=== PATIENT | male | born 1985 | race Caucasian/White ===

== ENCOUNTER 2018-09-15 11:18 | Inpatient (IN) | payer MEDICAID ==
[~2018-09-15] VITALS: Ht 170.2 cm; Wt 104.9 kg
[2018-09-15 11:29] VITALS: Ht 170.2 cm; Wt 104.9 kg
--- NOTE | 2018-09-15 11:46 | NUR ---
PT BROUGHT IN TO ED BY [facility] WITH C/O "FEELING COLD AND SHIVERING" S/P DRINKING A MONSTER WHILE AT WORK. PT REPEORTS NOT DRINKING ENERGY DRINKS. AT BEDSIDE PT IS AAOX4, RESPS E/U, SKIN IS PINK, WARN AND DRY. PERRLA. ALSO, PT IS CALM AND COOPERATIVE. PT AMBULATED FROM LOBBY TO ROOM WITH STEADY GAIT AND NO ASSIST. PT PLACED ON MONITOR. PT ORIENTED TO ROOM, USE OF CALL GOMEZ AND BED IN LOWEST POSITION. BED RAIL IS UP X1 FOR SAFETY.
[2018-09-15 12:07] LABS: PLATELET COUNT 302 x10^3mcL (130-400); RED CELL DISTRIBUTION WIDTH 12.7 % (11.5-14.5)
[2018-09-15 12:28] LABS: BAND NEUTROPHIL 5 % (0-10); BASOPHIL 0 % (0-2); MONOCYTE 6 % (0-7); SEGMENTED NEUTROPHILS 85 % (37-75)
[2018-09-15 12:38] LABS: CALCIUM 8.9 mg/dL (8.5-10.1); CARBON DIOXIDE 25.7 mmol/L (21-32); CHLORIDE SERUM 105 mmol/L (98-107); CREATININE SERUM 2.2 mg/dL (0.7-1.3); GFR1 36 mL/min; GLUCOSE SERUM 297 mg/dL (74-106); POTASSIUM SERUM 4.7 mmol/L (3.5-5.1); SODIUM SERUM 142 mmol/L (136-145)
[2018-09-15 12:50] LABS: ALKALINE PHOSPHATASE 111 U/L (46-116); ALT/SGPT 13 U/L (16-63); AST/SGOT 12 U/L (15-37); BILIRUBIN TOTAL 0.68 mg/dL (0.20-1.00); CHOLESTEROL 162 mg/dL (<200); LIPASE 60 IU/L (73-393); T4(THYROXINE) 6.4 ug/dL (4.7-13.3); TOTAL PROTEIN, SERUM 6.7 g/dL (6.4-8.2)
[2018-09-15 12:54] LABS: ALBUMIN 2.1 g/dL (3.4-5.0); AMYLASE 15 U/L (25-115); HDL CHOLESTEROL 26 mg/dL (40-60)
--- NOTE | 2018-09-15 14:26 | NUR ---
PT RESTING IN POSITION OF COMFORT. NO ACUTE DISTRESS NOTED AT THIS MOMENT.
--- NOTE | 2018-09-15 15:21 | NUR ---
PT AMBULATED FROM RESTROOM TO ROOM WITH STEADY GAIT AND NO ASSIST.
[2018-09-15] MEDS ORDERED: METFORMIN HYDR500 M1 (15:25)
[2018-09-15] MEDS ORDERED: GLIPIZIDE2.5 M1 (15:25)
[2018-09-15 15:38] LABS: MAGNESIUM 1.8 mg/dL (1.8-2.4); PHOSPHOROUS 3.5 mg/dL (2.5-4.9)
--- NOTE | 2018-09-15 15:50 | NUR ---
PT SITTING ON EDGE OF [facility]. 20G IV TO R HAND APPEARS TO HAVE BEEN ACCIDENTALLY DC'D. BANDAGE APPLIED OVER SITE SITE. NS BOLUS INFUSING TO R AC. PT STATES " I DON'T FEEL GOOD. I FEEL LIGHT HEADED. I WANT TO LAY DOWN. " BLOOD GLUCOSE RECHECK =96. PT PLACED BACK ON CM. PT NOW WITH EYES CLOSED. RESPONDS TO QUESTIONS APRORPIATELY. CONTINUE TO MONITOR.
[2018-09-15 16:03] LABS: microscopic required? YES; urine erythrocyte 3+ (NEGATIVE)
[2018-09-15 16:13] LABS: AMPHETAMINE QUAL UR POSITIVE (See below)
--- NOTE | 2018-09-15 16:14 | NUR ---
ESTHER IS EX-GIRLFRIEND WHO YOU COULD CALL IF ANYTHING PT CONFIRMED IT WAS OK.
--- NOTE | 2018-09-15 16:14 | NUR ---
HAND-OFF REPORT TO NADIYA SLAUGHTER FROM TELE UNIT TO ASSUME CARE.
--- NOTE | 2018-09-15 16:27 | NUR ---
PATIENT ARRIVED TO [address] [place] [address] VIA [facility]. PATIENT AMBULATORY, A/OX4. PATIENT EXPERIENCING NAUSEA AND VOMITTING. DR ALANIS IN TO SPEAK WITH PATIENT.
[2018-09-15 16:33] VITALS: BP 116/72
[2018-09-15 16:44] VITALS: BP 116/72
--- NOTE | 2018-09-15 16:47 | NUR ---
RECEIVED PT FROM ED VIA LUL. ORIENTED PT TO ROOM AND SURROUNDINGS. IV NOTED TO PATENT AND INTACT. TELE 12 PLACED ON PT READING STA. INSTRUCTED PT ON THE USE OF CALL LIGHT FOR ASSISTANCE. ENDORSED PT TO PRIMARY NURSE KASANDRA
--- NOTE | 2018-09-15 17:57 | NUR ---
PATIENT HAS ADDITIONAL EPISODE OF VOMITTING. DID NOT BEGIN DINNER TRAY, STATES IT WAS THE CRACKERS HE WAS GIVEN WHEN HE ARRIVED TO FLOOR. NO OTHER COMPLAINTS AT THIS TIME. WILL ENDORSE TO ONCOMING NURSE. CALL LIGHT IN REACH AT THIS TIME.
--- NOTE | 2018-09-15 18:29 | NUR ---
PATIENT IN BED, TOLERATED DINNER TRAY. US TECH IN ROOM FOR VASCULAR SCAN.
[2018-09-15 19:30] VITALS: BP 116/69
--- NOTE | 2018-09-15 19:30 | NUR ---
RECEIVED PT FROM AM NURSE, PT ON BED. AAOX4, TELE #12, BP 116/69 HR 105, DENIES CP/PRESSURE AT THIS TIME. PALPABLE PULSES TO BLE AND BUE, EDEMA TO RIGHT FOOT NOTED, RIGHT LEG RED AND WARM TO TOUCH. BREATHING EVEN AND UNLABORED, O2 98% ON RA. NO SIGNS OF RESP DISTRESS NOTED. ABD SOFT AND ROUND,ACTIVE BOWEL SOUNDS X4 QUAD. VOIDS FREELY BRP, AMBULAROTY, STATES WEAKNESS TO RIGHT LEG. OPEN WOUND TO RIGHT GREAT TOE COVERED WITH DRESSING, DRESSING CDI. IV TO RFA INFUSING WELL. CALL LIGHT WITHING REACH, WILL CONTINUE TO MONITOR.
--- NOTE | 2018-09-16 00:09 | NUR ---
DR. ISRAEL MADE AWARE OF WOUND CULTURE RESULT GRAM + COCCI IN CHAINS.PT ALREADY ON ZOSYN AND VANCO IV ATB.NEW ORDERS AT THIS TIME.
--- NOTE | 2018-09-16 05:12 | NUR ---
PT SLEPT WELL THROUGHOUT NIGHT, BREATHING EVEN AND UNLABORED, NO SIGNS OF RESP DISTRESS NOTED. ALL NEEDS ASSESSED AND ATTENDED, BED AT LOWEST POSITION, CALL LIGHT WITHING REACH. WILL ENDORSE CARE TO AM NURSE.
[2018-09-16 05:49] VITALS: BP 121/75
[2018-09-16 06:40] LABS: CALCIUM 8.2 mg/dL (8.5-10.1); CARBON DIOXIDE 23.9 mmol/L (21-32); CREATININE SERUM 2.6 mg/dL (0.7-1.3); POTASSIUM SERUM 4.7 mmol/L (3.5-5.1)
[2018-09-16 07:04] LABS: PLATELET COUNT 297 x10^3mcL (130-400); RED CELL DISTRIBUTION WIDTH 13.5 % (11.5-14.5)
[2018-09-16 08:00] VITALS: BP 115/72
--- NOTE | 2018-09-16 08:00 | NUR ---
ALERT AND ORIENTED. SITTING UP AT EDGE OF BED GETING READY FOR BREAKFAST. BREATHING FREELY ON RA. HAVING NAUSEA AND VOMITING. ADMIN ZOFRAN 4 MG IV. INDEPENDENT W ADL'S. TELE # 12 ST HR 114. DENIES ANY PAIN. DRESSING TO RT GREAT TOE INTACT. SLIGHT DRAINAGE BEGINNING TO SHOW THROUGH DRESSING. CALL LIGHT WITHIN REACH.
[2018-09-16 11:40] LABS: BAND NEUTROPHIL 48 % (0-10); MONOCYTE 5 % (0-7); PLATELET MORPHOLOGY PLATELETS NORMAL; SEGMENTED NEUTROPHILS 44 % (37-75); rbc morphology (normal/abnorm) NORMAL (NORMAL)
[2018-09-16 13:07] VITALS: BP 118/70
--- NOTE | 2018-09-16 15:19 | NUR ---
AMBULATED PT IN HALLWAY. PT WAS FELING A LITTLE LIGHTHEADED ANS WANTED TO RETURN TO ROOM ALTHOUGH HE SAT UP IN A CHAIR AT BEDSIDE.
[2018-09-16 16:20] VITALS: BP 103/62
--- NOTE | 2018-09-16 18:40 | NUR ---
SEEN BY DR. ALANIS THIS AFTERNOON. CHANGED DRESSING TO RT GREAT TOE AND EXPLAINED SURGERY NEEDED ON SAME TOE. SURGERY WILL BE ON TUESDAY. PT FAMILY WOULD LIKE TO FIND OUT WHETHER OR NOT DR. ALANIS CAN PERFORM THE SURGERY AT [facility] SINCE FAMILY IS CLOSER THERE. NO C/O PAIN. INTERMITTENT NAUSEA. CONTINUES ON ZOSYN,VANCO AND DIFLUCAN IV ABX. INDEPENDENT WITH ADL'S. CALL LIGHT WITHIN REACH.
[2018-09-16 19:53] VITALS: BP 112/74
--- NOTE | 2018-09-16 19:53 | NUR ---
RECEIVED PT FROM AM NURSE. PT SITTING ON BED, WITH FAMILY MEMBERS AT BED SIDE. AAOX4. TELE #12 BP 112/74 HR92. DENIES CP/PRESSURE AT THIS TIME. PALPABLE PULSES TO BUE AND BLE, SWEELING TO RIGH LEG AND RIGHT FOOT. LUNG SOUNDS CTA ON RA, BREATHING EVEN AND UNLABORED, NO SIGNS OF RESP DISTRESS NOTED. VOIDS FREELY BRP. WEAKNESS TO RIGHT LEG, ABLE TO AMBULATE WITH MINIMUM ASSIST. OPEN WOUND TO RIGHT GREAT TOE, COVERED WITH DRESSING, DRESSING CDI. IV TO RFA INFUSING WELL. BED AT LOWEST POSITION, CALL LIGHT WITHING REACH, WILL CONTINUE TO MONITOR.
--- NOTE | 2018-09-17 | NUR ---
PT VERBALIZED HE ONLY URINATED 1 TIME ALL DAY,BLADDER NON-DISTENDED.ASSISTED TO BR WITH FWW AND AMBULATED.URINATED IN THE BR AND VERBALIZED RELIEF.BLADDER SCAN POST VOID.BLADDER FULLY EMPTIED.ENCOURAGED TO CALL AT ALL TIMES FOR ASSISTANCE TO BR.WILL CONTINUE TO MONITOR.
--- NOTE | 2018-09-17 05:10 | NUR ---
PT SLEPT AT INTERVALS THROUGHOUT NIGHT, BREATHING EVEN AND UNLABORED ON RA, NO SIGNS OF RESP DISTRESS NOTED. BED AT LOWEST POSITION, CALL LIGHT WITHING REACH, ALL NEEDS ASSESSED AND ATTENDED. WILL ENDORSE CARE TO AM NURSE.
[2018-09-17 05:55] VITALS: BP 136/87
[2018-09-17 06:53] LABS: CALCIUM 7.5 mg/dL (8.5-10.1); CARBON DIOXIDE 25.5 mmol/L (21-32); MAGNESIUM 1.7 mg/dL (1.8-2.4); PHOSPHOROUS 3.6 mg/dL (2.5-4.9); POTASSIUM SERUM 4.4 mmol/L (3.5-5.1)
[2018-09-17 07:03] LABS: PLATELET COUNT 246 x10^3mcL (130-400); RED CELL DISTRIBUTION WIDTH 13.9 % (11.5-14.5)
[2018-09-17 07:55] VITALS: BP 123/82
--- NOTE | 2018-09-17 08:00 | NUR ---
ALERT AND ORIENTED. DENIES ANY PAIN. GOOD APPETITE WITH BREAKFAST. BREATHING FREELY ON RA. DRESSING TO RT GREAT TOE BECOMING DISLODGED AND WILL BE REPLACED. NOTED 2ND TO RT FOOT PURPLISH IN COLOR. DISCOLORATION TO LOWER LEGS. BREATHING FREELY ON RA, INDEPENDENT W ADL'S. USES WALKER FOR BRP. CALL LIGHT WITHIN REACH.
--- NOTE | 2018-09-17 09:03 | NUR ---
CHANGED GOWN. STARTED MAG RIDER. DRESSING TO RT GREAT TOE BECOMING DISLODGED. REMOVED AND REDRESSED RT GREAT TOE. VERY SMALL AMT YELLOWISH DRAINAGE NOTED ON PREEXSISTING GAUZE. 2ND TOE RT FOOT HAS PURPLISH DISCOLORATION. PT STILL HAS FEELING IN THE TOE.
--- NOTE | 2018-09-17 09:49 | NUR ---
PT AND FAMILY HAVE CHANGED THEIR MIND ABOUT HAVING SURGERY AT [facility]. THEY ARE HAPPY TO TO KEEP THE PT HERE AND HAVE SURGERY HERE. [facility] WAS CLOSER FOR FAMILY.
[2018-09-17 12:40] VITALS: BP 117/82
[2018-09-17 14:48] LABS: BAND NEUTROPHIL 32 % (0-10); SEGMENTED NEUTROPHILS 52 % (37-75)
[2018-09-17 14:49] LABS: MONOCYTE 9 % (0-7); rbc morphology (normal/abnorm) NORMAL (NORMAL)
[2018-09-17 14:50] LABS: PLATELET MORPHOLOGY PLATELETS NORMAL
[2018-09-17 17:01] VITALS: BP 114/77
--- NOTE | 2018-09-17 17:39 | NUR ---
DOZING OFF AND ON. NO C/O PAIN OR NAUSEA THIS SHIFT. SEEN BY DR. ALANIS TODAY. CHANGED DRESSING TO RT GREAT TOE. BRP. VSS. AFEBRILE. WBC 15.6. CONTINUES ON VANCO,DIFLUCAN AND ZOSYN MAG RIDER INFUSED. CALL LIGHT WITHIN REACH.
[2018-09-17 19:30] VITALS: BP 125/85
--- NOTE | 2018-09-17 19:30 | NUR ---
RECEIVED REPORT FROM AM NURSE, PT SITTING ON THE ENDGE OF THE BED, WITH FAMILY MEMEBERS AT BED SIDE. PT AAOX4, ON TELE #12 BP 125/85 HR 111, DENIES CP/PRESSURE. BREATHING EVEN AND UNLABORED ON RA, LUNG SOUNDS CTA. NO SIGNS OF RESP DISTRESS NOTED. PALPABLE PULSES TO BUE AND BLE, EDEMA TO RIGH FOOT AND LEG. ABD SOFT AND NONDISTENDED, ACTIVE BOWEL SOUNDS X4 QUAD, DENIES NAUSEA. VOIDS FREELY BRP. AMBULATORY WITH MINIMUM ASSIST, WEAKNESS TO RIGHT LEG. OPEN WOUND TO RIGHT GREAT TOE, COVERED WITH DRESSING, DRESSIGN CDI. IV TO LEFT HAND INFUSING WELL. SL TO RAC INFUSING WELL. BED AT LOWEST POSITION, CALL LIGHT WITHING REACH, WILL CONTINUE TO MONITOR.
--- NOTE | 2018-09-18 03:03 | NUR ---
PT AWAKE, STATES HAVING A HARD TIME FALLING ASLEEP, AND FEELING HUNGRY, JELLO AND CRAKERS PROVIDED. SITTING ON BED EATING. DENIES CP, BREATHING EVEN AND UNLABORED, NO SIGNS OF RESP DISTRESS NOTED. CALL LIGHT WITHING REACH, WILL CONTINUE TO MONITOR.
--- NOTE | 2018-09-18 05:18 | NUR ---
PT SLEPT AT INTERVALS THROUGHOUT NIGHT, STATED HAVING DIFFICULTY FALLING ASLEEP. BREATHING EVEN AND UNLABORED ON RA, NO SIGNS OF ACUTE DISTRESS NOTED.ALL NEEDS ASSESSED AND ATTENDED. BED AT LOWEST POSITION, CALL LIGHT WITHING REACH, WILL ENDORSE CARE TO AM NURSE.
[2018-09-18 05:34] VITALS: BP 153/93
[2018-09-18 06:59] LABS: BASOPHIL % 0.6 % (0-2); PLATELET COUNT 246 x10^3mcL (130-400); RED CELL DISTRIBUTION WIDTH 13.4 % (11.5-14.5)
[2018-09-18 07:20] LABS: CALCIUM 8.3 mg/dL (8.5-10.1); CARBON DIOXIDE 20.4 mmol/L (21-32); CREATININE SERUM 3.1 mg/dL (0.7-1.3); POTASSIUM SERUM 4.2 mmol/L (3.5-5.1)
--- NOTE | 2018-09-18 07:40 | NUR ---
RECEIVED PATIENT SITTING UP IN BED A/O X4, CLEAR SPEECH, NO NEURO DEFICITS NOTED. TELE # [address], DENIES CHEST PAIN. BREATHING EVEN AND UNLABBORED ON ROOM AIR, DENIES SOB, NO DISTRESS NOTED. DENIES ANY PAIN. IV TO RAC AND LH INTACT AND PATENT. TOURIST HOME KEEPER DR. ALANIS AT BEDSIDE TO SPEAK WITH AND ASSESS PATIENT, INFORMED PATIENT REGARDING PLAN FOR PROCEDURE TOMORROW (RT HALLUX AMPUTATION) CONSENT OBTAINED. DR. ALANIS ALSO PERFORMING DRESSING CHANGE TO RLE, PATIENT TOLERATED WELL. ALL NEEDS ATTENDED TO, SAFETY PRECAUTIONS MAINTAINED. WILL MONITOR.
--- NOTE | 2018-09-18 08:32 | NUR ---
PATIENT SITTING UP AT EDGE OF BED EATING BREAKFAST TOLERATING WELL, NO DISTRESS NOTED. ALL NEEDS ATTENDED TO, SAFETY PRECAUTIONS MAINTAINED WILL MONITOR.
[2018-09-18 09:00] VITALS: BP 132/88
--- NOTE | 2018-09-18 12:05 | NUR ---
PATIENT RESTING IN BED COMFORTABLY WITH EYES CLOSED BREATHING EVEN AND UNLABBORED, NO DISTRESS NOTED. DUE MEDICATION GIVEN TOLERATED WELL. ALL NEEDS ATTENDED TO. SAFETY PRECAUTIONS MAINTAINED. WILL MONITOR.
--- NOTE | 2018-09-18 13:06 | NUR ---
LATE ENTRY AT 1306: RECEIVED TELEPHONE CALL FROM DR. ALANIS STATED PATIENTS PROCEDURE WILL BE TOMORROW 09/19/18 AT 0830, WILL NOTIFY PATIENT. INFORMED DR. ALANIS PATIENT IS ON HEPARIN SQ EVERY 12 HOURS (SEE eMAR), HELD AM DOSE PER ARIK PRIVATE WATCHMAN. PER DR. ALANIS OKAY TO HOLD HEPARIN TODAY PRIOR TO PROCEDURE. WILL CARRY OUT ORDER.
[2018-09-18 13:17] VITALS: BP 145/87
--- NOTE | 2018-09-18 13:25 | NUR ---
PATIENT SITTING UP AT EDGE OF BED UPSET, STATED HE GOT FIRED FROM WORK AND "IS DONE WITH LIFE" AND "I WAS SO CLOSE TO SUICIDAL THOUGHTS BEFORE." ASKED PATIENT IF HE HAD ANY THOUGHTS OF HURTING HIMSELF AND PATIENT STATED "I DO AND I DONT." INFORMED PATIENT RECEIVED A CALL FROM DR. ALANIS AND PROCEDURE IS SCHEDULED FOR TOMORROW AT 0830. PATIENT STATED "I DONT CARE I FEEL LIKE GETTING UP AND WALKING OUT OF HERE." ARIK ILLUMINATOR MADE AWARE OF THE ABOVE AND STATED WILL ORDER PSYCH EVAL AND MOVE PATIENT CLOSER TO NURSING STATION FOR CLOSER MONITORING. CHARGE NURSE MADE AWARE.
--- NOTE | 2018-09-18 13:37 | NUR ---
Attempted to move patient with sitter at bedside but he refused. He said that he was just upset with the fact that he was notified that he lost his job. He denied suicidal ideations. He said that he is not comfortable with somebody at bedside and he likes to be by himself in the room. Attending nurse Aisha made aware. Will continue to monitor patient and maintain safety.
--- NOTE | 2018-09-18 14:45 | NUR ---
PATIENT SITTING UP AT EDGE OF BED EATING LUNCH, NO DISTRESS NOTED, VISITOR AT BEDSIDE. ALL NEEDS ATTENDED TO, SAFETY PRECAUTIONS MAINTAINED. WILL MONITOR.
--- NOTE | 2018-09-18 15:53 | NUR ---
RECEIVED CALL BACK FROM DR. RILEY AND MADE HIM AWARE OF STRESS TEST RESULTS. PER DR. RILEY PATIENT MAY BE DISCHARGED HOME TODAY. WILL FOLLOW UP WITH DISCHARGE ORDERS.
--- NOTE | 2018-09-18 17:50 | NUR ---
PATIENT SITTING UP AT EDGE OF BED EATING DINNER, NO DISTRESS NOTED. DUE MEDICATION GIVEN, TOLERATING WELL, IV TO LH INTACT INFUSING IVF WELL. ALL NEEDS ATTENDED TO, SAFETY PRECAUTIONS MAINTAINED. WILL MONITOR.
[2018-09-18 17:57] VITALS: BP 154/98
--- NOTE | 2018-09-18 18:31 | NUR ---
PATIENT RESTING IN BED COMFORTABLY WITH EYES CLOSED, BREAHTING EVEN AND UNLABBORED, NO DISTRESS NOTED. IV TO LH INTACT INFUSING IVF WELL FREE FROM REDNESS AND INFILTRATION. ALL NEEDS ATTENDED TO DURING SHIFT. SAFETY PRECAUTIONS MAINTAINED. WILL ENDORSE CARE TO ONCOMING NURSE.
--- NOTE | 2018-09-18 19:20 | NUR ---
RECEIVED PT IN BED AWAKE, ALERT,ORIENTED X4. LUNGS CTA. NO SOB ON ROOM AIR. RT FOOT W/ DRESSING CDI. BLE W/ SWELLING W/ RT GREATER THAN LT. RT LEG W/ REDNESS NOTED. HE DENIED HAVING PAIN AT THIS TIME. RLE ELEVATED W/ PILLOWS. W/ IVF NS AT TKO VIA LT HAND. W/ HL TO RTAC INTACT. CALL LIGHT W/IN REACH.
[2018-09-18 20:58] VITALS: BP 147/94
--- NOTE | 2018-09-18 22:00 | NUR ---
PT REQUESTED TO TAKE A SHOWER. WHEN TOLD THAT HE CAN SHOWER PER DOCTOR, PT CHANGED HIS MIND AND SAID HE WILL NOT SHOWER ANYMORE.
[2018-09-19] VITALS (8 sets, daily range): BP systolic 135–173; BP diastolic 84–104
--- NOTE | 2018-09-19 02:00 | NUR ---
PT APPEARS TO BE SLEEPING COMFORTABLY. LEGS ELEVATED ON PILLOWS.
--- NOTE | 2018-09-19 05:03 | NUR ---
PT SLEPT THROUGH THE NIGHT. HE HAD NO C/O PAIN. DRESSING TO RT FOOT CDI. RT LEG ELEVATED ON PILLOWS WHILE HE SLEPT. PT ON NPO STATUS FOR SX THIS AM. PT ABLE TO AMBULATE W/ HEEL WEIGHTBEARING ON RT FOOT. IV SITE TO LT HAND AND RTAC REMAINS INTACT AND PATENT.
--- NOTE | 2018-09-19 06:06 | NUR ---
CHLORHEXIDINE PRE-OP WIPES DONE ORDERED.
[2018-09-19 06:31] LABS: BASOPHIL % 0.3 % (0-2); PLATELET COUNT 268 x10^3mcL (130-400); RED CELL DISTRIBUTION WIDTH 13.2 % (11.5-14.5)
--- NOTE | 2018-09-19 06:40 | NUR ---
REPORT GIVEN TO OR NURSE PATEL
[2018-09-19 06:58] LABS: CARBON DIOXIDE 22.5 mmol/L (21-32); CREATININE SERUM 3.3 mg/dL (0.7-1.3); POTASSIUM SERUM 4.9 mmol/L (3.5-5.1)
--- NOTE | 2018-09-19 07:15 | NUR ---
RECEIVED PATIENT RESTING IN BED COMFORTABLY A/O X4, NO NEURO DEFICITS NOTED. TELE # [address], DENIES CHEST PAIN, BREATHING EVEN UNLABBORED ON RA, NO DISTRESS NOTED. PATIENT SCHEDULED FOR PROCEDURE THIS AM AT 0830, NPO STATUS MAINTAINED. IV TO RAC AND LH H/L INTACT AND PATENT. DENIES ANY PAIN. PATIENT CALM WITH CARE. INSTRUCTED TO CALL FOR ASSISTANCE IF NEEDED. SAFETY PRECAUTIONS MAINTAINED. WILL MONITOR.
--- NOTE | 2018-09-19 07:56 | NUR ---
MADHAV QUINTANA AT BEDSIDE TO SPEAK WITH PATIENT AND HIS BROTHER AT BEDSIDE REGARDING POC. ALL QUESTIONS AND CONCERNS ADDRESSED. SAFETY PRECAUTIONS MAINTAINED. WILL MONITOR.
--- NOTE | 2018-09-19 08:05 | NUR ---
WOUND CARE CONSULT NOT DONE, PODIATRY FOLLOW UP IN HOUSE AND PT. IS PLANNING FOR SURGERY.
--- NOTE | 2018-09-19 08:14 | NUR ---
PATIENT TAKEN DOWN TO OR FOR PROCEDURE. [employer] NURSE MADE AWARE.
--- NOTE | 2018-09-19 10:30 | NUR ---
RECEIVED PATIENT BACK FROM OR/PACU S/P RIGHT HALLUX AMPUTATION. PATIENT SLIGHTLY DROWSY BUT A/O, ABLE TO AMBULATE SELF FROM GURNEY TO BED USING FWW. PATIENT MADE COMFORTABLE IN BED. IV TO LH H/L INTACT AND PATENT. TELE # 12 APPLIED, COMMUNITY BOARD MEMBER MADE AWARE PATIENT BACK IN ROOM. PATIENT MADE COMFORTABLE, ALL NEEDS ATTENDED TO, SAFETY PRECAUTIONS MAINTAINED. VSS.
--- NOTE | 2018-09-19 12:16 | NUR ---
MADHAV QUINTANA MADE AWARE OF BP 160/100, HR 99. RECHECKED BP PER MADHAV REQUEST: BP ON RIGHT 173/104, BP ON LEFT 170/110. MADHAV QUINTANA AWARE OF THE BP READINGS AND WILL PLACE AN ORDER FOR BP MEDICATION. WILL CARRY OUT ORDER ONCE PLACED.
--- NOTE | 2018-09-19 12:30 | NUR ---
HYDRALAZINE 10 MG IVP ONCE (SEE eMAR) GIVEN NOW FOR ELEVATED BP. ALL NEEDS ATTENDED TO. SAFETY PRECAUTIONS MAINTAINED. WILL MONITOR.
--- NOTE | 2018-09-19 12:54 | NUR ---
PATIENT RESTING IN BED, DROWSY BUT AROUSABLE. RECHECKED BP: 157/95, MAP 115, HR 106. PATIENT DENIES ANY PAIN. DRESSING TO RT FOOT CDI. ALL NEEDS ATTENDED TO. SAFETY PRECAUTIONS MAINTAINED. WILL MONITOR.
--- NOTE | 2018-09-19 15:09 | NUR ---
STAFF SUBMARINE WARFARE OFFICER AT BEDSIDE FOR US RENAL/KIDNEY.
[2018-09-19 15:54] LABS: microscopic required? YES; urine erythrocyte 2+ (NEGATIVE)
--- NOTE | 2018-09-19 18:02 | NUR ---
PATIENT SITTING UP AT EDGE OF BED TALKING TO STORM JC (SOCIAL WORK). ALL QUESTIONS AND CONCERNS ADDRESSED, SAFETY PRECAUTIONS MAINTAINED.
--- NOTE | 2018-09-19 18:48 | NUR ---
PATIENT C/O PAIN TO RLE 10/11, MEDICATED WITH TYLENOL OP (SEE eMAR). RLE ELEVATED ON PILLOW, PATIENT MADE COMFORTABLE, STATED PAIN IS "STARTING TO FEEL BETTER." DRESSING TO RT FOOT, CDI. IV TO LH INTACT INFUSING IVF WELL. ALL NEEDS ATTENDED TO. SAFETY PRECAUTIONS MAINTAINED. WILL ENDORSE CARE TO ONCOMING NURSE.
--- NOTE | 2018-09-19 19:15 | NUR ---
RECEIVED PT IN BED AWAKE, ALERT,ORIENTED X4. PT NOTED SHIVERING AND STUTTERING WHEN HE TALKS. PT STATED IT IS BECAUSE HE IS IN PAIN. PT C/O PAIN TO RT FOOT AT 710. RT FOOT W/ DRESSING CDI AND ELEVATED ON PILLOWS. NO C/O ABDL DISCOMFORT. PT REQUESTED FOR SNACKS AND WAS GIVEN DIET SODA AND CRACKERS. IV SITE TO LT HAND W/ SWELLING NOTED. PT STATED HE DOES NOT WANT TO HAVE IV REINSERTED AT THIS TIME. CALL LIGHT W/IN REACH.
--- NOTE | 2018-09-19 20:07 | NUR ---
PT AMBULATED TO THE RESTROOM W/ POST-OP SHOE AND USING A WALKER. PT NOW W/ NO STUTTERING WHEN HE TALKS. FAMILY AT BEDSIDE VISITING.
--- NOTE | 2018-09-19 20:30 | NUR ---
STARTED NEW IV ON THE RT HAND. PT TOLERATED PROCEDURE WELL. IV TO LT HAND REMOVED( INFILTRATED).
--- NOTE | 2018-09-19 20:45 | NUR ---
FOUND PT W/ SEVERAL CANS OF DIET SODA AND CRACKERS AT BEDSIDE W/C WAS BROUGHT IN BY FAMILY. EDUCATED PT REGARDING HIS DIET AND THAT HE HAS TO ADHERE TO THE ORDERED DIET IN THE HOSPITAL.
--- NOTE | 2018-09-20 05:28 | NUR ---
PT SLEPT THROUGH THE NIGHT. HE WAS MEDICATED FOR PAIN X1. DRESSING TO RT FOOT CDI. HE IS ABLE TO AMBULATE W/ MINIMAL ASSISTANCE.PT USING POST-OP SHOE. ALL NEEDS ATTENDED TO.
--- NOTE | 2018-09-20 05:55 | NUR ---
INFORMED DR. TRAMMELL THAT PT REFUSED AM BLOOD DRAW.
[2018-09-20 06:08] VITALS: BP 148/91
--- NOTE | 2018-09-20 08:25 | NUR ---
PATIENT CALLED ASKING FOR PAIN MEDICATIN. PATIENT AMBULATED TO RESTROOM WITH BOOT AND THAT INCREASED HIS PAIN. 10/11. ADMNIISTERED MORPHINE PRN PER JUN WITH OTHER SCHEDULED MEDICATION. INFOMRED PATIENT I WILL REASSESS HIS PAIN IN 30 MIUTES. ASSISTED PATIENT INTO BED TO REST. RAISED LEGS ON PILLOW. CALL LIGHT WITHIN REACH
--- NOTE | 2018-09-20 08:40 | NUR ---
PATIENT SEEN RESTING, APPARENTLY ASLEEP. BREATHING NORMAL, UNLABORED.
[2018-09-20 08:46] VITALS: BP 144/100
--- NOTE | 2018-09-20 11:38 | NUR ---
ADMINISTERED MEDICATIONS PER MAR, INCLUDING 3UNITS INSULIN AFTER BG OF 175, COSIGNED BY BONITA HEARN. PATIENT HAD QUESTIONS ABOUT PLAN OF CARE. INFORMED [PATIENT THAT WE ARE WAITING FOR SURGEON TO ASSESS SURGICAL SITE BEFORE MOVING FORWARD. ANSWERED OTHER QUESTIONS. FAMILY AT BEDSIDE, CALL LIGHT WITHIN REACH
[2018-09-20 12:43] VITALS: BP 147/89
--- NOTE | 2018-09-20 14:47 | NUR ---
PATIENT SLEEPING AT THIS TIME. BROTHER AT BEDSIDE, INFORMED BROTHER THAT WHMANNIE PATIENT WAKES UP IF HE HAS PAIN HE CAN RECEIVE PAIN MEDICATION AND TO CALL NURSE STATION IF DESIRED. CALL LIIGHT WITHIN REACH OF PATIENT
--- NOTE | 2018-09-20 14:56 | NUR ---
Initial Nutrition Assessment: 223T/B LEN SKINNER MR Dx: RLE pain PMHx: DM type 2 PSHx: Right eye surgery Labs: BG 287H, BUN 51H, CREAT 3.3H, MG 1.7L, A1C 10.1H Meds: D 10%, Humulin, lactinex, Zofran, zosyn, heparin Diet: CCHO PO Intake: (09/20) breakfast 50% Ht: 170.18 cm (67") Wt: 104.9 kg (230#) BMI: 36.2 kg/m2 Bed scale: 104 kg IBW: 148# (67 kg) %IBW: 155 UBW: 230# Age: 33/M Food Allergies: NKFA Skin: dressing to R foot Con: 19 Edema: swelling to lower extremities GI: Last BM: 09/18 Per H&P, Pt is a 33 yo M with PMH of DM type 2 was admitted with cc of 1 day of body shaking and chills that started after he drank 3 monster caffeinated drinks. Pt admitted to profuse sweating, generalized weakness and fatigue. Also pt c/o right great toe dorsal wound x 1 month that was treated with different PO ABX (one of them is ciprofloxacin according to the pt). Pt has manager power who follows him but doesn't remember his name (in [place]). Per procedure note (09/19) pt had Hallux Ampuation, Right Foot. RDN Visit (09/20): Patient was alert and oriented and said that he has good appetite. Patient said that he drank coffee for breakfast this morning and had scrambled eggs. Problem with: N/V/D/C: patient has diarrhea Problems with: Chewing/Swallowing: no Current appetite: good Recent wt change: patient was not sure %wt change: unable to access Vitamin/Supplement use: none Special diet at home: Tries to eat diet with low sugar, drink zero calorie drinks Physical activity: walking Nutrition education given: Diabetic diet education was provided using [facility] handout on "type 2 DM Nutrition Therapy". Concepts such as label reading, portion control were discussed. Food-drug interactions: heparin- consistent vitamin K intake Education given: no Estimated Nutritional Needs Based on adjusted body weight 76 kg Energy: 6411-3177 kcal/d (25-30 kcal/kg) Protein: 76-91 g/d (1.0-1.2 g/kg)- preserve LBM Fluid: 5321-6398 ml/d (1 ml/kcal) or per doctor Nutrition Diagnosis 1. Impaired nutrient utilization related to endocrine insufficiency as evidenced by BG 287, A1C 10.1 Intervention 1. Recommend continuing CCHO diet as tolerated. Monitor/Evaluate Goal: PO intake at least 75% of estimated needs Monitor: PO intake, Labs, GI function F/U in 3-5 days as moderate risk
--- NOTE | 2018-09-20 14:56 | NUR ---
1. Recommend continuing CCHO diet as tolerated.
--- NOTE | 2018-09-20 16:23 | NUR ---
SAW PATIENT UP WITH PT WALKING WITH WALKER, USING BOOT TO RIGHT FOOT, WEIGHT ON HEEL. PT STATED PATEINT DO NOT NEED REGULAR PT. AND IS OKAY TO AMBULATE WITHOUT ASSISTANCE. INFORMED PATEINT TO CALL FOR NURSE IF NEEDING MANAGEMENT OF PAIN
--- NOTE | 2018-09-20 17:09 | NUR ---
ADMINISTERED MEDICATION PER MAR. BG RESULT WAS 245 NEEDING 6 UNIT COVERAGE PER JUN. COSIGNED BY JOSÉ MIGUEL HEARN. PATIENT COMPLAINING OF 7/10 PAIN. ADMINISTERED MORPHINE TX. MEDINA ANTUNEZ i WILL REASSESS HIS PAIN IN 1/2 HOUR. CALL LIGHT WITHIN REACH. PATIENT TURNED OFF LIGHT STATING HE WISHED TO SLEEP BEFORE DINNER
--- NOTE | 2018-09-20 20:20 | NUR ---
PATIENT RECEIVED AWAKE, ALERT, ORIENTED X4 IN BED. RESPIRATION EVEN AND UNLABORED, ON ROOM AIR. S/P RIGHT GREAT TOE AMPUTATION 09/19/2018 COVERED WITH DRY AND INTACT DRESSING. +1 PITTING EDEMA TO BLE R>L. NO COMPLAINTS NOTED, LBM 09/20/2018. VOIDING FREELY WITHOUT DIFFICULTY. GENERALIZED WEAKNESS, AMBULATORY, POST-OP SHOE TO RIGHT FOOT WITH AMBULATION AT BEDSIDE. DENIES PAIN AT THIS TIME. SALINE LOCK TO RIGHT HAND PATENT AND INTACT. ON TELE #12. WILL CONTINUE TO MONITOR.
--- NOTE | 2018-09-20 21:17 | NUR ---
PATIENT COMPLAINED THROBBING/SHARP, RIGHT FOOT PAIN, 7/10. MEDICATED WITH MORPHINE SULFATE 2 MG IVP ORDERED. WILL CONTINUE TO MONITOR.
--- NOTE | 2018-09-20 21:37 | NUR ---
PATIENT REFUSED HIS HS DOSE OF HEPARIN 5000 UNITS SQ. EDUCATED ON THE NECESSITY OF THE ORDER AND ITS IMPORTANCE TO HIS CARE. WILL CONTINUE TO MONITOR.
[2018-09-20 21:54] VITALS: BP 147/89
--- NOTE | 2018-09-21 03:00 | NUR ---
PATIENT COMPLAINED OF THROBBING, RIGHT FOOT PAIN, 6/10. MEDICATED WITH MORPHINE SULFATE 2 MG IVP ORDERED. WILL CONTINUE TO MONITOR.
[2018-09-21 05:40] VITALS: BP 145/95
--- NOTE | 2018-09-21 06:06 | NUR ---
PT SLEPT THROUGH LONG INTERVALS IN THE NIGHT. BREATHING WAS EVEN AND UNLABORED. NO SIGNS OF RESP DISTRESS NOTED. PT DENIES PAIN AT THIS TIME. PT MORNING BLOOD SUGAR WAS 233, PT RECIEVED 6 UNITS OF REGULAR INSULIN. PT WAS COOPERATIVE WITH NURSING CARE THROUGH OUT THE NIGHT BUT REFUSED MORNING LABS. PT IS ON TELE #[address] PT IV IS ON RH INFUSING WELL.
--- NOTE | 2018-09-21 07:40 | NUR ---
RECEIVED PT FROM PAPER FINAL INSPECTOR RN. Harrison/PAUL. TELE#12. DENIES CHEST PAIN/PRESSURE. PT REFUSING TO HAVE HIS AM LABS DRAWN. PANEL WIRER MADHAV MADE AWARE. RESPIRATIONS EQUAL AND UNLABORED ON RA. DENIES SOB. IV SALINE LOCKED TO LW. NO REDNESS OR SWELLING NOTED. DRESSING TO RLE, CDI. NO DRAINAGE OR SWELLING NOTED. WILL CONTINUE TO MONITOR. CALL LIGHT IN REACH. BED IN LOWEST POSITION.
--- NOTE | 2018-09-21 07:45 | NUR ---
MADHAV SIZING SPONGER AT BEDSIDE. PT STILL REFUSING BLOOD DRAWS. PT ASKING TO SIGN HIMSELF OUT.
--- NOTE | 2018-09-21 08:15 | NUR ---
MADHAV [place] AT BEDSIDE SPOKE WITH PT. PT OKAY WITH STAYING AND HAVING BLOOD DRAWN. LAB CALLED AND WILL BE UP TO DRAW AM LABS.
--- NOTE | 2018-09-21 08:29 | NUR ---
RECEIVED ORDER TO INCREASE IV FLUIDS TO 100 ML/HR. IV FLUIDS INCREASE. LAB AT BEDSIDE DRAWING AM LABS.
[2018-09-21 08:51] LABS: CALCIUM 8.3 mg/dL (8.5-10.1); CREATININE SERUM 2.4 mg/dL (0.7-1.3); MAGNESIUM 2.1 mg/dL (1.8-2.4); PHOSPHOROUS 3.7 mg/dL (2.5-4.9); POTASSIUM SERUM 4.4 mmol/L (3.5-5.1)
[2018-09-21 09:05] LABS: microalbumin:creatinine ratio 2508.2 (0.0-30.0)
[2018-09-21 09:13] LABS: BASOPHIL % 0.5 % (0-2); PLATELET COUNT 310 x10^3mcL (130-400); RED CELL DISTRIBUTION WIDTH 13.5 % (11.5-14.5)
[2018-09-21 09:43] VITALS: BP 148/96
[2018-09-21] MEDS ORDERED: DIFLUCAN100 MG PO (11:16)
[2018-09-21 11:31] VITALS: BP 148/96
--- NOTE | 2018-09-21 12:07 | NUR ---
PT SITTING UP IN BED. PT GIVEN DISCHARGE INSTRUCTIONS. PT ENCOURAGED TO KEEP DRESSING TO RT FOOT CLEAN DRY AND INTACT. PT ENCOURAGED TO CONTINUE TO CALL DR. RODGERS OFFICE ANY PROBLEMS OF WITH DRESSING OR IF IT GETS WET. PT GIVEN PRESCRIPTION FOR ANTIBIOTICS AND INSTRUCTED TO TAKE IT ONCE A DAY FOR FIVE DAYS. PT VERBALIZED UNDERSTANDING. PT ENCOURAGED TO FOLLOW DIABETIC DIET AND CONTINUE TO MONITOR SUGARS AT HOME TO HELP WITH WOUND HEALING. PT ASKING FOR PRESCRIPTION FOR GLUCOMETER, LANCETS, AND TEST STRIPS. PT PROVIDED WITH PRECRIPTION. PT GIVEN WORK EXCUSE. PT NOTIFIED OF FOLLOW UP APPOINTMENT WITH PCP, MACHINE MAINTENANCE TECHNICIAN AND ELECTRONICS DESIGN ENGINEER. PT VERBALIZED UNDERSTANDING. IV TO RW REMOVED CATHETER INTACT. NO REDNESS OR SWELLING NOTED. ALL QUESTIONS AND CONCERNS ADDRESSED. NO PROBLEMS ENCOUNTERED. PT TAKEN OFF FLOOR VIA WHEELCHAIR.
== END 2018-09-21 12:05 | disposition home or self-care (01) | DRG 710 ==
LOC: ED 11:18 → DU 14:55 → MU 09-21 08:44
PROVIDERS: Emergency Medicine; General Practice; Internal Medicine; Nutritionist Nutrition, Education; ADMIT Internal Medicine
PROC: 0Y6P0Z1 Detachment at Right 1st Toe, High, Open Approach (ICD-10-PCS; principal; 2018-09-19 08:30)
DX: A41.9 Sepsis, unspecified organism (principal); N17.0 Acute kidney failure with tubular necrosis; E43 Unspecified severe protein-calorie malnutrition; M86.8X6 Other osteomyelitis, lower leg; E11.69 Type 2 diabetes mellitus with other specified complication; E11.621 Type 2 diabetes mellitus with foot ulcer; E11.22 Type 2 diabetes mellitus with diabetic chronic kidney disease; E11.21 Type 2 diabetes mellitus with diabetic nephropathy; E11.65 Type 2 diabetes mellitus with hyperglycemia; F43.0 Acute stress reaction; L03.031 Cellulitis of right toe; N18.4 Chronic kidney disease, stage 4 (severe); F15.10 Other stimulant abuse, uncomplicated; E66.9 Obesity, unspecified; Z68.35 Body mass index [BMI] 35.0-35.9, adult; Z79.84 Long term (current) use of oral hypoglycemic drugs
CPT/HCPCS: 82962; 90715; G0378; J0295; J0360; J1450; J1644; J1815; J2250; J2270; J2405; J2543; J3010; J3370; J3475; J3490; J7030; Q0092